=== PATIENT | male | born 1995 | race Caucasian/White ===

== ENCOUNTER 2016-11-18 10:06 | Emergency (ER) | payer OTHER ==
[2016-11-18 10:25] VITALS: BP 132/79
[2016-11-18] MEDS ORDERED: BOOSTRIX VACCINE IM ONE (11:31)
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
== END 2016-11-18 12:37 | disposition home or self-care (01) ==
LOC: P.ED 10:06
DX: S00.03XA Contusion of scalp, initial encounter (principal); R51 Headache; V49.40XA Driver injured in collision with unspecified motor vehicles in traffic accident, initial encounter; Z23 Encounter for immunization
CPT/HCPCS: 90471; 90715